=== PATIENT | male | born 1965 | race African-American/Black ===

== ENCOUNTER 2019-10-04 17:25 | Inpatient (IN) | payer OTHER, SELFPAY ==
[~2019-10-04 17:25] MED LIST: Calcium Chloride 1 GM/10 ML Abboject SYRINGE ONE; Dexamethasone 20 MG/5 ML VIAL ONE; EPHEDRINE 25 MG/5 ML SYRINGE ONE; EPINEPHrine 1 MG/10 ML Abboject SYRINGE ONE; Iopamidol-370 76% 500 ML 1 ML ONE; Lidocaine 1% PF 5 ML VIAL ONE; Ondansetron PF 4 MG/2 ML Vial ONE; PHENYLEPHRINE-NS 100 MCG/ML 10 ML SYRINGE ONE; PROPOFOL 200 MG/20 ML VIAL ONE; Rocuronium Bromide 10 MG/ML (10ML VIAL) ONE; Sodium Bicarb 50 MEQ/50 ML Abboject 8.4% SYRINGE ONE; Succinylcholine Chloride 20 MG/ML 10 ml SYRINGE FS ONE
[2019-10-04] MEDS ORDERED: Fentanyl 100 MCG/2 ML VIAL ONE ×3 (17:33→22:26)
[2019-10-04 17:54] LABS: #Basophils 0.1 thou/uL (0.0-0.2); #Eosinphils 0.2 thou/uL (0.0-0.7); #Lymphocytes 2.3 thou/uL (1.20-3.40); #Monocytes 0.7 thou/uL (0.11-0.59); #Neutrophils 10.8 thou/uL (1.40-6.50); %Basophils 0.5 % (0.0-1.0); %Eosinophils 1.1 % (0.0-10.0); %Lymphocytes 16.3 % (21.0-51.0); %Monocytes 5.1 % (0.0-10.0); %Neutrophils 76.9 % (42.0-75.0); Hemoglobin 13.4 g/dL (14.0-18.0); Mean Corpuscular HGB CONC 33.5 g/dL (32.0-36.0); Mean Corpuscular Hemoglobin 30.8 pg (27.0-31.0); Mean Corpuscular Volume 91.8 fL (78.0-98.0); Mean Platelet Volume 7.9 fL (7.4-10.4); Platelet Count 191 thou/uL (130-400); RBC Distribution Width 12.6 % (11.5-14.5); Red Blood Cell (RBC) Count 4.37 mill/uL (4.70-6.10)
[2019-10-04 17:59] LABS: Bacteria/HPF None Seen HPF (None Seen); Bilirubin Negative (Negative); Blood, Urine 2+ (Negative); Clarity Clear (Clear); Glucose, Urine (Dipstick) Normal (Negative); Leukocyte Negative Leu/uL (Negative); Nitrite Negative (Negative); Protein, Urine (Dipstick) 20 mg/dL (Neg-Trace); RBC/HPF 21-50 HPF (0-3); Squamous Epithelial 0-3 HPF (0-3); Urobilinogen Normal mg/dL (Less than 2)
[2019-10-04 18:01] LABS: INR-International Normal Ratio 1.1; PTT 25.4 sec (22.9-36.1)
[2019-10-04 18:09] LABS: ALT (SGPT) 115 U/L (8-55); AST (SGOT) 108 U/L (5-34); Alkaline Phosphatase 70 U/L (40-110); Anion Gap 16 mmol/L (10-20); BUN (Urea Nitrogen) 14 mg/dL (8.4-25.7); Bilirubin, Total 0.3 mg/dL (0.2-1.2); Calc. Creatinine Clearance 0 mL/min (70-130); Calcium 8.3 mg/dL (7.8-10.44); Carbon Dioxide 19 mmol/L (22-29); Chloride 108 mmol/L (98-107); Estimated GFR-MDRD 48; Globulin 3.2 g/dL (2.4-3.5); Glucose 159 mg/dL (70-105); Lipase 69 U/L (8-78); Potassium 4.5 mmol/L (3.5-5.1); Protein, Total 7.2 g/dL (6.0-8.3); Sodium 138 mmol/L (136-145)
[2019-10-04] MEDS ORDERED: Adacel (T-DAP) 0.5 ML SYRINGE ONE (18:13)
[2019-10-04] MEDS ORDERED: hydrALAZINE 20 MG/ML VIAL SLOW IVP PRN ×2 (18:18)
[2019-10-04] MEDS ORDERED: Dextrose 5% in Water 1,000 ML IV PRN (18:18)
[2019-10-04] MEDS ORDERED: HumaLOG 300 UNITS/3 ML VIAL SC PRN (18:18)
[2019-10-04] MEDS ORDERED: Dextrose 50% Abboject 50 ML SYRINGE SLOW IVP PRN (18:18)
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
[2019-10-04] MEDS ORDERED: Rib Fracture Protocol IV SCH (18:30)
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
[2019-10-04 18:40] LABS: CKMB 20.3 ng/mL (0-6.6)
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
[2019-10-04] MEDS ORDERED: Rib Fracture Protocol PO SCH (18:45)
[2019-10-04] MEDS ORDERED: Fentanyl 250 MCG/5 ML VIAL ONE (18:49)
[2019-10-04] MEDS ORDERED: Calcium Chloride 1 GM/10 ML Abboject SYRINGE ONE (18:55)
[2019-10-04] MEDS ORDERED: EPINEPHRINE 1 MG/10 ML-NACL IV ONE (19:03)
[2019-10-04] MEDS ORDERED: CEFAZOLIN 2 GM in Premix Bag 1 BAG IVPB SCH (19:15)
[2019-10-04] MEDS ORDERED: Midazolam HCl 2 mg/2 ml Vial ONE (19:18)
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
[2019-10-04] MEDS ORDERED: SUGAMMADEX SODIUM 200 MG/2 ML VIAL ONE (20:04)
[2019-10-04] MEDS ORDERED: EPHEDRINE 25 MG/5 ML SYRINGE ONE ×2 (20:38→21:34)
[2019-10-04] MEDS ORDERED: Phenylephrine 10 MG/ML VIAL ONE (20:50)
[2019-10-04] MEDS ORDERED: Famotidine/PF 20 mg/2ml Vial SLOW IVP SCH (21:00)
[2019-10-04] MEDS ORDERED: Sodium Chloride 0.9% (PF) 10 ML VIAL FS PRN (21:12)
[2019-10-04] MEDS ORDERED: Cyclobenzaprine 10 MG TAB PO PRN (21:15)
[2019-10-04] MEDS ORDERED: EPINEPHrine 1 MG/10 ML Abboject SYRINGE ONE (21:41)
[2019-10-04] MEDS ORDERED: Albumin 5% 250 ML ONE (21:42)
[2019-10-04 21:58] LABS: #Eosinphils 0.1 thou/uL (0.0-0.7); #Lymphocytes 2.5 thou/uL (1.20-3.40); #Neutrophils 12.4 thou/uL (1.40-6.50); %Eosinophils 0.3 % (0.0-10.0); %Lymphocytes 14.5 % (21.0-51.0); %Monocytes 11.8 % (0.0-10.0); %Neutrophils 73.4 % (42.0-75.0); Hemoglobin 10.5 g/dL (14.0-18.0); Mean Corpuscular HGB CONC 33.4 g/dL (32.0-36.0); Mean Corpuscular Hemoglobin 31.2 pg (27.0-31.0); Mean Corpuscular Volume 93.3 fL (78.0-98.0); Mean Platelet Volume 7.4 fL (7.4-10.4); Platelet Count 138 thou/uL (130-400); RBC Distribution Width 12.3 % (11.5-14.5); Red Blood Cell (RBC) Count 3.38 mill/uL (4.70-6.10); White Blood Cell (WBC) Count 16.9 thou/uL (4.8-10.8)
[2019-10-04] MEDS ORDERED: Hydrocortisone Sod Succ/PF 100 mg/2 ml Vial ONE (22:14)
[2019-10-04] MEDS: Sodium Chloride 0.9% 1,000 ML IV SCH (22:15)
[2019-10-04 22:22] LABS: Actual Bicarbonate (HCO3a) 19.1 mEq/L (22-28); Base Excess (BEa) -9.4 mEq/L (-2.0 to +3.0); CO2 Tension 52.3 mmHg (35.0-45.0); Calcium, Ionized (arterial) 1.16 mmol/L (1.12-1.30); Carboxyhemoglobin (COHb) 0.4 gm% (0.0-3.0); Hemoglobin (Hb) 12.6 g/dL (14.0-18.0); O2 Tension (PaO2), arterial 85.8 mmHg (80.0-100.0); Potassium - ABG Lab 3.78 mmol/L (3.70-5.30)
[2019-10-04 22:23] LABS: Puncture Site LINE; pH, Arterial 7.18 (7.35-7.45)
[2019-10-04] MEDS ORDERED: Albumin 5% 500 ML ONE (22:30)
[2019-10-04] MEDS ORDERED: Hydrocortisone Sod Succ/PF 100 mg/2 ml Vial IVP SCH (22:45)
[2019-10-04] MEDS ORDERED: Fentanyl 100 MCG/2 ML VIAL SLOW IVP SCH (22:45)
[2019-10-04] MEDS ORDERED: Sodium Bicarb 50 MEQ/50 ML Abboject 8.4% SYRINGE IVP SCH (22:45)
[2019-10-04] MEDS ORDERED: Fentanyl 100 MCG/2 ML VIAL SLOW IVP PRN (22:47)
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
[2019-10-04 23:10] VITALS: BMI 45.3
[2019-10-04] MEDS: Atorvastatin Calcium 10 MG TAB PO SCH (23:16)
[2019-10-04] MEDS: Senokot S 8.6-50 MG TAB PO SCH (23:18)
[2019-10-04] MEDS: Gabapentin 300 MG CAP PO SCH (23:18)
[2019-10-04 23:24] LABS: INR-International Normal Ratio 1.3; Prothrombin Time 16.3 sec (12.0-14.7)
[2019-10-04] MEDS: Hydrocortisone Sod Succ/PF 100 mg/2 ml Vial IVP SCH (23:24)
[2019-10-04 23:25] LABS: PTT 30.6 sec (22.9-36.1)
[2019-10-04] MEDS: traMADol HCl 50 MG TAB PO SCH (23:25)
[2019-10-04] MEDS: Ibuprofen 800 MG TAB PO SCH (23:25)
[2019-10-04] MEDS: Acetaminophen 500 MG TAB PO SCH (23:25)
[2019-10-04] MEDS: Pantoprazole 40 MG VIAL IVP SCH (23:27)
[2019-10-04 23:37] LABS: Anion Gap 16 mmol/L (10-20); BUN (Urea Nitrogen) 17 mg/dL (8.4-25.7); Calc. Creatinine Clearance 75 mL/min (70-130); Calcium 8.3 mg/dL (7.8-10.44); Carbon Dioxide 18 mmol/L (22-29); Chloride 109 mmol/L (98-107); Estimated GFR-MDRD 40; Glucose 164 mg/dL (70-105); Magnesium 1.9 mg/dL (1.6-2.6); Potassium 4.1 mmol/L (3.5-5.1); Sodium 139 mmol/L (136-145)
[2019-10-04] MEDS: CEFAZOLIN 2 GM in Premix Bag 1 BAG IVPB SCH (23:39)
[2019-10-04] MEDS ORDERED: Sodium Bicarbonate 150 MEQ in Dextrose 5% in Water 1,000 ML IV SCH (23:45)
[2019-10-04] MEDS ORDERED: Magnesium 2 GM/50 ML 2 GM in Premix Bag 1 BAG IVPB SCH (23:45)
[2019-10-04] MEDS ORDERED: Magnesium Sulfate 2 GM in Sodium Chloride 0.9% 250 ML 250 ML IVPB SCH (23:45)
[2019-10-04] MEDS: Fentanyl 100 MCG/2 ML VIAL SLOW IVP PRN (23:46)
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
[2019-10-05] MEDS: Fentanyl 100 MCG/2 ML VIAL SLOW IVP PRN ×5 (01:36→20:20)
[2019-10-05] MEDS: CEFAZOLIN 2 GM in Premix Bag 1 BAG IVPB SCH ×2 (01:50→09:40)
[2019-10-05] MEDS: Sodium Chloride 0.9% 1,000 ML IV SCH ×4 (02:40→19:43)
[2019-10-05] MEDS: Ibuprofen 800 MG TAB PO SCH ×2 (04:06→11:41)
[2019-10-05] MEDS: Acetaminophen 500 MG TAB PO SCH ×3 (04:06→18:52)
[2019-10-05] MEDS: traMADol HCl 50 MG TAB PO SCH ×3 (04:07→22:14)
[2019-10-05 04:14] LABS: #Lymphocytes 0.6 thou/uL (1.20-3.40); #Neutrophils 8.9 thou/uL (1.40-6.50); %Basophils 0.2 % (0.0-1.0); %Eosinophils 0.1 % (0.0-10.0); %Lymphocytes 5.3 % (21.0-51.0); %Monocytes 9.5 % (0.0-10.0); %Neutrophils 84.9 % (42.0-75.0); Hemoglobin 11.5 g/dL (14.0-18.0); Mean Corpuscular HGB CONC 33.3 g/dL (32.0-36.0); Mean Corpuscular Hemoglobin 30.2 pg (27.0-31.0); Mean Corpuscular Volume 90.7 fL (78.0-98.0); Mean Platelet Volume 7.6 fL (7.4-10.4); Platelet Count 106 thou/uL (130-400); RBC Distribution Width 12.4 % (11.5-14.5); Red Blood Cell (RBC) Count 3.81 mill/uL (4.70-6.10); White Blood Cell (WBC) Count 10.5 thou/uL (4.8-10.8)
[2019-10-05 04:26] LABS: Lactic Acid 3.6 mmol/L (0.5-2.2)
[2019-10-05 04:31] LABS: Anion Gap 14 mmol/L (10-20); BUN (Urea Nitrogen) 18 mg/dL (8.4-25.7); Calc. Creatinine Clearance 95 mL/min (70-130); Calcium 8.2 mg/dL (7.8-10.44); Carbon Dioxide 24 mmol/L (22-29); Chloride 107 mmol/L (98-107); Estimated GFR-MDRD 51; Glucose 171 mg/dL (70-105); Magnesium 2.4 mg/dL (1.6-2.6); Potassium 4.3 mmol/L (3.5-5.1); Sodium 141 mmol/L (136-145)
[2019-10-05 05:00] LABS: CK (CPK) 9348 U/L (30-200)
[2019-10-05 05:06] LABS: Phosphorus 4.1 mg/dL (2.3-4.7)
[2019-10-05] MEDS: Hydrocortisone Sod Succ/PF 100 mg/2 ml Vial IVP SCH ×3 (06:30→22:15)
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
--- NOTE | 2019-10-05 08:57 | RAD ---
RIGHT FEMUR 2 VIEWS: HISTORY: Intraoperative films. FINDINGS: These show a gamma-type nail stabilizing the base of femoral neck fracture in place and a long stent intramedullary ricci stabilizing a segmental fracture of the femoral shaft. IMPRESSION: Fixation of base of femoral neck and femoral shaft fractures. POS: AMANDA
[2019-10-05] MEDS ORDERED: DULoxetine 30 MG CAP PO SCH (09:00)
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
[2019-10-05] MEDS: Pantoprazole 40 MG VIAL IVP SCH (09:40)
[2019-10-05] MEDS: Gabapentin 300 MG CAP PO SCH ×3 (09:40→20:19)
[2019-10-05] MEDS: Polyethylene Glycol 3350 17 GM Packet PO SCH (09:41)
[2019-10-05] MEDS: Senokot S 8.6-50 MG TAB PO SCH ×2 (09:41→20:19)
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
[2019-10-05] MEDS ORDERED: Ondansetron ORAL SOLN. 4 MG/5 ML UDCUP PO PRN (15:09)
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
[2019-10-05] MEDS ORDERED: Mometasone Furoate 120 PUFF 220 MCG INH SCH (18:30)
[2019-10-05] MEDS: oxyCODONE 5 MG TAB PO PRN (18:52)
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
[2019-10-05] MEDS: Terazosin HCl 5 MG CAP PO SCH (19:43)
[2019-10-05] MEDS: Atorvastatin Calcium 10 MG TAB PO SCH (20:19)
[2019-10-05] MEDS: Hydroxychloroquine Sulfate 200 MG TAB PO SCH (20:19)
[2019-10-05] MEDS: Enoxaparin Sodium 30 MG/0.3 ML SYRINGE SC SCH (20:20)
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
[2019-10-06] MEDS: Sodium Chloride 0.9% 1,000 ML IV SCH ×4 (00:48→22:12)
[2019-10-06] MEDS: Acetaminophen 325 MG TAB PO SCH ×3 (00:48→13:41)
[2019-10-06] MEDS: Gabapentin 300 MG CAP PO SCH ×3 (00:57→13:42)
[2019-10-06] MEDS: oxyCODONE 5 MG TAB PO PRN (01:24)
[2019-10-06] MEDS ORDERED: Pregabalin 50 MG CAP PO SCH ×2 (01:45→09:00)
[2019-10-06] MEDS ORDERED: Diclofenac 1% 100 GM GEL TP SCH (01:45)
[2019-10-06] MEDS: Ondansetron PF 4 MG/2 ML Vial IVP PRN (02:24)
[2019-10-06 03:34] LABS: #Lymphocytes 1.6 thou/uL (1.20-3.40); #Monocytes 1.4 thou/uL (0.11-0.59); #Neutrophils 7.4 thou/uL (1.40-6.50); %Basophils 0.1 % (0.0-1.0); %Eosinophils 0.2 % (0.0-10.0); %Monocytes 13.5 % (0.0-10.0); %Neutrophils 71.2 % (42.0-75.0); Hemoglobin 9.7 g/dL (14.0-18.0); Mean Corpuscular HGB CONC 33.6 g/dL (32.0-36.0); Mean Corpuscular Hemoglobin 30.8 pg (27.0-31.0); Mean Corpuscular Volume 91.7 fL (78.0-98.0); Platelet Count 92 thou/uL (130-400); RBC Distribution Width 12.7 % (11.5-14.5); Red Blood Cell (RBC) Count 3.13 mill/uL (4.70-6.10); White Blood Cell (WBC) Count 10.4 thou/uL (4.8-10.8)
[2019-10-06 03:53] LABS: Anion Gap 11 mmol/L (10-20); BUN (Urea Nitrogen) 21 mg/dL (8.4-25.7); Calc. Creatinine Clearance 129 mL/min (70-130); Calcium 7.7 mg/dL (7.8-10.44); Carbon Dioxide 27 mmol/L (22-29); Chloride 104 mmol/L (98-107); Estimated GFR-MDRD 73; Glucose 113 mg/dL (70-105); Magnesium 2.2 mg/dL (1.6-2.6); Phosphorus 3.8 mg/dL (2.3-4.7); Potassium 4.3 mmol/L (3.5-5.1); Sodium 138 mmol/L (136-145)
[2019-10-06 04:18] LABS: CK (CPK) 15795 U/L (30-200)
[2019-10-06] MEDS: traMADol HCl 50 MG TAB PO SCH ×2 (06:10→13:41)
[2019-10-06] MEDS: Hydrocortisone Sod Succ/PF 100 mg/2 ml Vial IVP SCH (06:41)
[2019-10-06] MEDS: Allopurinol 100 MG TAB PO SCH (09:36)
[2019-10-06] MEDS: Polyethylene Glycol 3350 17 GM Packet PO SCH (09:36)
[2019-10-06] MEDS: oxyCODONE 5 MG TAB PO SCH ×2 (09:36→13:41)
[2019-10-06] MEDS: DULoxetine 30 MG CAP PO SCH (09:37)
[2019-10-06] MEDS: Hydroxychloroquine Sulfate 200 MG TAB PO SCH ×2 (09:38→22:01)
[2019-10-06] MEDS: Senokot S 8.6-50 MG TAB PO SCH ×2 (09:39→22:00)
[2019-10-06] MEDS: Ascorbic Acid 500 mg Chewable Tablet PO SCH (09:39)
[2019-10-06] MEDS: Enoxaparin Sodium 30 MG/0.3 ML SYRINGE SC SCH ×2 (09:39→22:02)
[2019-10-06] MEDS ORDERED: Iopamidol 370 76% 50 ML VIAL FS ONE (10:09)
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
[2019-10-06] MEDS: Diclofenac 1% 100 GM GEL TP SCH ×4 (12:22→22:02)
--- NOTE | 2019-10-06 15:01 | CT ---
Exam: Chest CT without contrast COMPARISON: 10/04/2019 HISTORY: Questionable pneumomediastinum with possible esophageal injury. TECHNIQUE: Noncontrast chest CT is formed in the axial plane. Patient was administered oral contrast. FINDINGS: No evidence of pneumomediastinum. No evidence of pneumothorax Multiple right rib fractures as well as a mid thoracic spine fracture are redemonstrated. Associated paraspinal hematoma. Trachea and central bronchi are patent. Bilateral pleural effusions with bibasilar consolidation due to atelectasis, aspiration or pneumonia. Additional patchy groundglass opacities are noted in both upper lobes. Pleural-based nodule along the right upper lobe pleural margin measures 0.6 cm. Groundgl ass nodule in the left lower lobe measures 0.5 cm. Solid-appearing nodule in the left upper lobe measures 0.8 cm. No acute abnormalities in the upper abdomen Contrast opacifies the thoracic esophagus. There does not appear to be a leak or extravasation. There is mild narrowing of the overall caliber of the esophagus at the level of GE junction. Contrast does pass into the stomach which is adequately opacified. Mild tortuosity of the distal thoracic esop hagus with leftward deviation is noted. IMPRESSION: 1. No thoracic esophagus leak or extravasation. 2. Bibasilar pleural effusion with consolidation due to atelectasis, aspiration or pneumonia. 3. Leftward deviation of the distal thoracic esophagus, similar to the previous examination. Nonspeci fic tortuosity. 4. No evidence of pneumomediastinum. 5. Posttraumatic changes as described above. Transcribed Date/Time: 10/06/2019 3:15 PM
[2019-10-06] MEDS ORDERED: HYDROcodone/Acetaminophen 10/325 mg Tablet PO PRN (15:44)
[2019-10-06] MEDS: HYDROcodone/Acetaminophen 10/325 mg Tablet PO SCH ×2 (18:00→21:59)
[2019-10-06] MEDS: cloNIDine 0.1 MG TAB PO SCH (18:02)
[2019-10-06] MEDS: Mometasone Furoate 30 PUFF 220 MCG INH SCH (19:32)
[2019-10-06] MEDS: Terazosin HCl 5 MG CAP PO SCH (22:00)
[2019-10-06] MEDS: Atorvastatin Calcium 10 MG TAB PO SCH (22:00)
[2019-10-06] MEDS: Pregabalin 75 MG CAP PO SCH (22:01)
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
[2019-10-07] MEDS: cloNIDine 0.1 MG TAB PO SCH ×4 (00:45→17:58)
[2019-10-07] MEDS: HYDROcodone/Acetaminophen 10/325 mg Tablet PO SCH ×6 (00:46→20:35)
[2019-10-07] MEDS ORDERED: Furosemide 40 MG/4 ML VIAL SLOW IVP SCH (04:45)
[2019-10-07 04:55] LABS: Magnesium 2.6 mg/dL (1.6-2.6); Phosphorus 3.3 mg/dL (2.3-4.7)
[2019-10-07] MEDS: Sodium Chloride 0.9% 1,000 ML IV SCH ×3 (05:15→17:59)
[2019-10-07 05:21] LABS: CK (CPK) 14765 U/L (30-200)
[2019-10-07 06:46] LABS: Anion Gap 9 mmol/L (10-20); BUN (Urea Nitrogen) 25 mg/dL (8.4-25.7); Calc. Creatinine Clearance 140 mL/min (70-130); Calcium 8.1 mg/dL (7.8-10.44); Carbon Dioxide 29 mmol/L (22-29); Chloride 103 mmol/L (98-107); Estimated GFR-MDRD 81; Glucose 116 mg/dL (70-105); Potassium 4.4 mmol/L (3.5-5.1); Sodium 137 mmol/L (136-145)
[2019-10-07 06:48] LABS: Band 2 % (5-11); Eosinophils 1 % (0-10); Hemoglobin 8.7 g/dL (14.0-18.0); Hypochromia SLIGHT = 6-15 cells (100X) (0-5/hpf); Lymphocytes 4 % (21-51); MDiff Complete? YES; Mean Corpuscular HGB CONC 34.7 g/dL (32.0-36.0); Mean Corpuscular Hemoglobin 31.9 pg (27.0-31.0); Mean Corpuscular Volume 92.1 fL (78.0-98.0); Mean Platelet Volume 7.3 fL (7.4-10.4); Monocytes 9 % (0-10); Neutrophil 84 % (42-75); Platelet Count 93 thou/uL (130-400); Platelet Morphology Comment Appears Decreased; RBC Distribution Width 12.2 % (11.5-14.5); Red Blood Cell (RBC) Count 2.73 mill/uL (4.70-6.10); White Blood Cell (WBC) Count 13.5 thou/uL (4.8-10.8)
[2019-10-07] MEDS ORDERED: ADALIMUMAB 40 MG/0.8 ML SC SCH (09:00)
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
[2019-10-07] MEDS: Pregabalin 75 MG CAP PO SCH ×2 (10:09→20:36)
[2019-10-07] MEDS: DULoxetine 30 MG CAP PO SCH (10:09)
[2019-10-07] MEDS: Allopurinol 100 MG TAB PO SCH (10:10)
[2019-10-07] MEDS: Senokot S 8.6-50 MG TAB PO SCH ×2 (10:10→20:37)
[2019-10-07] MEDS: Metoprolol Tartrate 25 MG TAB PO SCH ×2 (10:10→20:36)
[2019-10-07] MEDS: Hydroxychloroquine Sulfate 200 MG TAB PO SCH ×2 (10:10→20:35)
[2019-10-07] MEDS: Enoxaparin Sodium 30 MG/0.3 ML SYRINGE SC SCH ×2 (10:11→22:10)
[2019-10-07] MEDS: Ascorbic Acid 500 mg Chewable Tablet PO SCH (10:11)
[2019-10-07] MEDS: Polyethylene Glycol 3350 17 GM Packet PO SCH (10:11)
[2019-10-07] MEDS: Diclofenac 1% 100 GM GEL TP SCH ×4 (10:13→20:45)
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
[2019-10-07] MEDS: Mometasone Furoate 30 PUFF 220 MCG INH SCH (19:28)
[2019-10-07] MEDS: Atorvastatin Calcium 10 MG TAB PO SCH (20:36)
[2019-10-07] MEDS: Terazosin HCl 5 MG CAP PO SCH (20:37)
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
[2019-10-08] MEDS: HYDROcodone/Acetaminophen 10/325 mg Tablet PO SCH ×5 (00:53→17:00)
[2019-10-08] MEDS: cloNIDine 0.1 MG TAB PO SCH ×4 (00:54→17:01)
[2019-10-08] MEDS: Sodium Chloride 0.9% 1,000 ML IV SCH ×2 (02:41→09:19)
[2019-10-08 04:24] LABS: #Basophils 0.1 thou/uL (0.0-0.2); #Eosinphils 0.1 thou/uL (0.0-0.7); #Lymphocytes 1.5 thou/uL (1.20-3.40); #Monocytes 1.3 thou/uL (0.11-0.59); #Neutrophils 12.6 thou/uL (1.40-6.50); %Basophils 0.5 % (0.0-1.0); %Eosinophils 0.6 % (0.0-10.0); %Lymphocytes 9.7 % (21.0-51.0); %Monocytes 8.2 % (0.0-10.0); Hemoglobin 8.4 g/dL (14.0-18.0); Mean Corpuscular HGB CONC 34.1 g/dL (32.0-36.0); Mean Corpuscular Hemoglobin 31.2 pg (27.0-31.0); Mean Corpuscular Volume 91.5 fL (78.0-98.0); Mean Platelet Volume 8.3 fL (7.4-10.4); Platelet Count 129 thou/uL (130-400); RBC Distribution Width 12.4 % (11.5-14.5); White Blood Cell (WBC) Count 15.6 thou/uL (4.8-10.8)
[2019-10-08 04:36] LABS: Anion Gap 14 mmol/L (10-20); BUN (Urea Nitrogen) 23 mg/dL (8.4-25.7); Calc. Creatinine Clearance 163 mL/min (70-130); Calcium 8.3 mg/dL (7.8-10.44); Carbon Dioxide 28 mmol/L (22-29); Chloride 102 mmol/L (98-107); Estimated GFR-MDRD Greater than 90; Glucose 127 mg/dL (70-105); Magnesium 2.9 mg/dL (1.6-2.6); Potassium 4.2 mmol/L (3.5-5.1); Sodium 140 mmol/L (136-145)
[2019-10-08 05:02] LABS: CK (CPK) 12116 U/L (30-200)
[2019-10-08] MEDS: Enoxaparin Sodium 30 MG/0.3 ML SYRINGE SC SCH (09:13)
[2019-10-08] MEDS: Polyethylene Glycol 3350 17 GM Packet PO SCH (09:13)
[2019-10-08] MEDS: DULoxetine 30 MG CAP PO SCH (09:14)
[2019-10-08] MEDS: Hydroxychloroquine Sulfate 200 MG TAB PO SCH (09:15)
[2019-10-08] MEDS: Senokot S 8.6-50 MG TAB PO SCH (09:15)
[2019-10-08] MEDS: Ascorbic Acid 500 mg Chewable Tablet PO SCH (09:16)
[2019-10-08] MEDS: Pregabalin 75 MG CAP PO SCH (09:16)
[2019-10-08] MEDS: Metoprolol Tartrate 25 MG TAB PO SCH (09:16)
[2019-10-08] MEDS: Allopurinol 100 MG TAB PO SCH (09:17)
[2019-10-08] MEDS: Diclofenac 1% 100 GM GEL TP SCH ×3 (09:19→17:06)
[2019-10-08] MEDS ORDERED: Albuterol Sulfate 2.5 mg/3 ml Neb NEB PRN (10:45)
[2019-10-08] MEDS: Ondansetron PF 4 MG/2 ML Vial IVP PRN (11:04)
[2019-10-08 13:39] VITALS: TEMP 98.2
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
[2019-10-08 17:07] VITALS: BP 96/61
[2019-10-08] MEDS: Mometasone Furoate 30 PUFF 220 MCG INH SCH (19:28)
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
[2019-10-09] MEDS ORDERED: Fluticasone Propionate Nasal Spray 16 gm Bottle NASAL SCH (09:00)
[2019-10-09] MEDS ORDERED: Atorvastatin Calcium 10 MG TAB PO SCH (21:00)
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
== END 2019-10-08 21:15 | disposition expired | DRG 956 ==
LOC: ERS 17:25 → SDC 18:09 → CCU 18:10 → IMCU/EMU 10-05 18:42 → SJJU 10-08 12:09
PROVIDERS: ADMIT Surgery; ATTEND Surgery
PROC: 0QH834Z Insertion of Internal Fixation Device into Right Femoral Shaft, Percutaneous Approach (ICD-10-PCS; principal; 2019-10-04)
PROC: 30233K1 Transfusion of Nonautologous Frozen Plasma into Peripheral Vein, Percutaneous Approach (ICD-10-PCS; 2019-10-04)
PROC: 30233N1 Transfusion of Nonautologous Red Blood Cells into Peripheral Vein, Percutaneous Approach (ICD-10-PCS; 2019-10-04)
PROC: 30233P1 Transfusion of Nonautologous Frozen Red Cells into Peripheral Vein, Percutaneous Approach (ICD-10-PCS; 2019-10-04)
PROC: 5A09357 Assistance with Respiratory Ventilation, Less than 24 Consecutive Hours, Continuous Positive Airway Pressure (ICD-10-PCS; 2019-10-04)
PROC: 5A1D70Z Performance of Urinary Filtration, Intermittent, Less than 6 Hours Per Day (ICD-10-PCS; 2019-10-06)
PROC: 06HY33Z Insertion of Infusion Device into Lower Vein, Percutaneous Approach (ICD-10-PCS; 2019-10-08)
PROC: 3E033XZ Introduction of Vasopressor into Peripheral Vein, Percutaneous Approach (ICD-10-PCS; 2019-10-08)
PROC: 0BH17EZ Insertion of Endotracheal Airway into Trachea, Via Natural or Artificial Opening (ICD-10-PCS; 2019-10-08)
PROC: 5A12012 Performance of Cardiac Output, Single, Manual (ICD-10-PCS; 2019-10-08)
DX: S72.21XA Displaced subtrochanteric fracture of right femur, initial encounter for closed fracture (principal); S06.9X1A Unspecified intracranial injury with loss of consciousness of 30 minutes or less, initial encounter; S27.2XXA Traumatic hemopneumothorax, initial encounter; T79.1XXA Fat embolism (traumatic), initial encounter; I26.99 Other pulmonary embolism without acute cor pulmonale; S22.41XA Multiple fractures of ribs, right side, initial encounter for closed fracture; S22.069A Unspecified fracture of T7-T8 vertebra, initial encounter for closed fracture; Z68.42 Body mass index [BMI] 45.0-49.9, adult; S27.321A Contusion of lung, unilateral, initial encounter; D62 Acute posthemorrhagic anemia; E87.2 Acidosis; N17.9 Acute kidney failure, unspecified; J98.11 Atelectasis; J90 Pleural effusion, not elsewhere classified; S72.011A Unspecified intracapsular fracture of right femur, initial encounter for closed fracture; D86.9 Sarcoidosis, unspecified; R57.8 Other shock; T79.6XXA Traumatic ischemia of muscle, initial encounter; R40.2362 Coma scale, best motor response, obeys commands, at arrival to emergency department; R40.2142 Coma scale, eyes open, spontaneous, at arrival to emergency department; R40.2252 Coma scale, best verbal response, oriented, at arrival to emergency department; E66.01 Morbid (severe) obesity due to excess calories; E83.42 Hypomagnesemia; Y92.410 Unspecified street and highway as the place of occurrence of the external cause; V24.4XXA Motorcycle driver injured in collision with heavy transport vehicle or bus in traffic accident, initial encounter; Z79.899 Other long term (current) drug therapy; Z79.51 Long term (current) use of inhaled steroids
CPT/HCPCS: 36415; 36416; 36430; 51702; 70450; 71045; 71250; 71260; 72125; 72146; 72170; 74177; 76000; 80048; 80053; 81003; 81015; 82550; 82553; 82805; 83605; 83690; 83735; 83880; 84100; 84484; 85025; 85610; 85730; 86850; 86900; 86901; 90471; 90715; 92950; 93005; 94640; 94660; 94664; 94760; 96365; 96374; 96375; 96376; 99292; C1713; C9113; G0390; J0171; J0690; J1100; J1650; J1720; J2001; J2250; J2370; J2405; J2704; J3010; J3475; J7070; J7620; P9016; P9045; P9059; Q0162; Q9967